=== PATIENT | male | born 1985 | race American Indian/Alaskan Native ===

== ENCOUNTER 2016-09-02 12:23 | Emergency (ER) | payer OTHER ==
[2016-09-02 12:45] VITALS: BP 120/80
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
== END 2016-09-02 19:45 | disposition home or self-care (01) ==
LOC: ED 12:23
DX: R51 Headache (principal); M54.9 Dorsalgia, unspecified; F17.200 Nicotine dependence, unspecified, uncomplicated; Z88.0 Allergy status to penicillin; V43.52XA Car driver injured in collision with other type car in traffic accident, initial encounter; Y93.9 Activity, unspecified; Y99.9 Unspecified external cause status; Y92.410 Unspecified street and highway as the place of occurrence of the external cause
CPT/HCPCS: 71020; 99283